=== PATIENT | female | born 1965 | race Two or more races ===

== ENCOUNTER 2025-10-22 10:44 | Emergency (ER) | payer MEDICAID ==
[~2025-10-22] VITALS: Ht 162.6 cm; Wt 59.0 kg
[2025-10-22 10:59] VITALS: O2SAT 98
[2025-10-22 12:52] LABS: CLARITY URINE CLEAR (CLEAR); COLOR URINE YELLOW (YELLOW); GLUCOSE URINE 3+ (NEGATIVE); KETONES URINE NEGATIVE (NEGATIVE); LEUKOCYTE ESTERASE URINE TRACE (NEGATIVE); NITRITE URINE NEGATIVE (NEGATIVE); OCCULT BLOOD URINE NEGATIVE (NEGATIVE); PH URINE 6.5 (4.5-8.0); PROTEIN URINE 2+ (NEGATIVE); SPECIFIC GRAVITY URINE 1.012 (1.005-1.030); UROBILINOGEN URINE 0.2 E.U./dL (0.2-1.0)
[2025-10-22] MEDS: ACETAMINOPHEN 325MG TABLET PO ONE (12:56)
[2025-10-22 13:05] LABS: SQUAMOUS EPITHELIAL CELL URINE 2+ /lpf (RARE/1+)
[2025-10-22 13:06] LABS: BACTERIA URINE 1+; RBC URINE 0-2 /hpf (0-2)
[2025-10-22 13:07] LABS: FINE GRANULAR CASTS URINE 0-5 /lpf
[2025-10-22] MEDS ORDERED: CEPH500T MT (13:13)
[2025-10-22 13:27] VITALS: BP 118/71; PULSE 95; RESP 17; TEMP 36.9; O2SAT 99
== END 2025-10-22 13:28 | disposition home or self-care (01) ==
LOC: ER 10:44
DX: N39.0 Urinary tract infection, site not specified (principal); N89.8 Other specified noninflammatory disorders of vagina; E11.9 Type 2 diabetes mellitus without complications
CPT/HCPCS: 81003; 81025; 99283